=== PATIENT | male | born 1985 | race African-American/Black ===

== ENCOUNTER 2017-02-07 19:31 | Emergency (ER) | payer OTHER ==
[2017-02-07 19:47] LABS: URINE SOURCE CLEAN CATCH
[2017-02-07 19:53] LABS: URINE APPEARANCE CLEAR; URINE BILIRUBIN NEG (NEG); URINE BLOOD 1+ (NEG); URINE COLOR DK YELLOW; URINE GLUCOSE NEG (NEG); URINE KETONE TRACE (NEG); URINE LEUKOCYTE ESTERASE NEG (NEG); URINE NITRATE NEG (NEG); URINE PROTEIN NEG (NEG)
[2017-02-07 19:56] LABS: URINE BACTERIA AUWI NEG (NEGATIVE); URINE SQUAMOUS EPITHELIAL CELL NONE SEEN /[HPF]
[2017-02-07 19:57] LABS: CULTURE INDICATED? NO
[2017-02-07 20:03] LABS: URINE MUCUS PRESENT; URINE TRICHOMONAS NEGATIVE
[2017-02-09 16:00] LABS: CHLAMYDIA TRACH Not Detected (Not Detected); N GONOR Not Detected (Not Detected)
== END 2017-02-07 20:48 | disposition home or self-care (01) ==
LOC: CFTX 19:31 → CED 19:31 → CFTX 20:17
PROVIDERS: Physician Assistant
DX: Z20.2 Contact with and (suspected) exposure to infections with a predominantly sexual mode of transmission (principal); F17.200 Nicotine dependence, unspecified, uncomplicated
CPT/HCPCS: 81003; 87491; 87591; 96372; 99283; J0696